=== PATIENT | female | born 1990 | race Asian ===

== ENCOUNTER 2019-06-30 10:53 | Emergency (ER) | payer SELFPAY ==
[~2019-06-30] VITALS: Ht 152.4 cm; Wt 67.0 kg
[2019-06-30 10:56] VITALS: BP 114/76; PULSE 89; RESP 18; Ht 152.4 cm; Wt 67.0 kg
== END 2019-06-30 14:58 | disposition home or self-care (01) ==
LOC: FTE 10:53
DX: O20.9 Hemorrhage in early pregnancy, unspecified (principal); R10.2 Pelvic and perineal pain; Z3A.09 9 weeks gestation of pregnancy
CPT/HCPCS: 76801; 76817; 81001; 81003; 84702; 85025; 86900; 86901; J2790; 36415